=== PATIENT | male | born 1930 | race Caucasian/White ===

== ENCOUNTER → 2017-03-28 | Outpatient (CLI) | payer MEDICARE, BC ==
[~2017-03-28] MED LIST: ALEVE220 MG PO; ASPIRIN LO-DOSE81 MG PO; CORDARONE,PACE200 MG PO; COZAAR25 MG PO; CRESTOR5 MG PO; DRISDOL 5050000 UNIT PO; ELIQUIS2.5 MG PO; GLUCOTROL XL10 MG PO; LASIX40 MG PO; MEGARED OMEGA-1 EAC1 PO; NIFEREX-150) (150 MG PO; NORVASC5 MG PO; PRESERVISION L1 EACH PO; VESICARE5 MG PO; ZAROXOLYN2.5 MG PO
== END ==
LOC: LGSMG 12:35
DX: Z00.00 Encounter for general adult medical examination without abnormal findings (principal); D64.9 Anemia, unspecified; I50.9 Heart failure, unspecified; N18.3 Chronic kidney disease, stage 3 (moderate); E78.5 Hyperlipidemia, unspecified; I13.0 Hypertensive heart and chronic kidney disease with heart failure and stage 1 through stage 4 chronic kidney disease, or unspecified chronic kidney disease; E11.22 Type 2 diabetes mellitus with diabetic chronic kidney disease; Z92.29 Personal history of other drug therapy